=== PATIENT | female | born 1995 | race Caucasian/White ===

== ENCOUNTER → 2021-10-24 | Outpatient (CLI) | payer BC ==
[~2021-10-24] MED LIST: OXYC-325 PO
== END ==
LOC: LAB 11:17
PROVIDERS: ATTEND Surgery
DX: Z01.812 Encounter for preprocedural laboratory examination (principal); Z20.822 Contact with and (suspected) exposure to COVID-19
CPT/HCPCS: U0003; U0005

== ENCOUNTER 2021-10-28 07:21 | Day surgery (SDC) | payer BC ==
[~2021-10-28] VITALS: Ht 167.6 cm; Wt 61.5 kg
[~2021-10-28 07:21] MED LIST changes: +HYDROmorphone 2 MG/ML VIAL IVP PRN; +IV RINGERS,LACTATED 1000ML 1,000 ML IV SCH; +MORPHINE SULFATE 2 MG/ML INJ. IVP PRN; -OXYC-325 PO; +PROCHLORPERAZINE 10 MG/2 ML VIAL. IVP PRN; +ceFAZolin SODIUM IV Push 1 GM VIAL. IVP PRN; +fentaNYL PF VIAL 100 MCG/2 ML VIAL IVP PRN
[2021-10-28] MEDS ORDERED: BUPIVACAINE-EPI 0.5% 30 ML VIAL KIT. ONE (08:17)
[2021-10-28] MEDS ORDERED: DEXMEDETOMIDINE 200 MCG/2 ML VIAL. IV ONE (08:30)
[2021-10-28] MEDS ORDERED: ONDANSETRON PF 4 MG/2 ML VIAL. ONE (08:41)
[2021-10-28] MEDS ORDERED: LIDOCAINE 1% PF 5 ML VIAL. ONE (08:41)
[2021-10-28] MEDS ORDERED: PROPOFOL 10 MG/ML (20ML) VIAL. IV ONE (08:41)
[2021-10-28] MEDS ORDERED: KETOROLAC 30 MG/ML VIAL. ONE (08:41)
[2021-10-28] MEDS ORDERED: fentaNYL PF VIAL 100 MCG/2 ML VIAL ONE ×2 (08:42→10:45)
[2021-10-28] MEDS ORDERED: DEXAMETHASONE SOD PHOS 4 MG/ML VIAL ONE (08:42)
--- NOTE | 2021-10-28 10:33 | PDOC4 ---
Operative Note Operative Note Operative Note: Preoperative Diagnosis: Right inguinal hernia Postoperative Diagnosis: Same Procedure: Right inguinal hernia repair with mesh Surgeon: Ryan Nutter Up: Rocio MUNOZ Anesthesia: General EBL: 10 mL Specimen: None Drains: None Complications: None Indication: The patient is a 26-year-old female who is referred with a right inguinal hernia. She was offered surgical repair. The risks of surgery were discussed which include bleeding, infection, recurrence, pain, anesthetic risk, potential need for additional surgery procedure. She understands and would like to proceed. Description: The patient was taken to the operating room and placed supine on the operating table. General anesthesia was performed. The right groin was shaved prepped with ChloraPrep and draped in a standard surgical manner. An incision was made in the skin lines with a scalpel. Cautery dissection was carried down to the external beak aponeurosis. The aponeurosis was opened down to the external ring. The rudimentary cord structures were encircled with a Geeta drain. There was an indirect hernia sac present. The hernia sac was ligated near its base. The rudimentary cord structures were doubly ligated and excised. The hernia sac was fully reduced and the defect filled with a medium sized Phasix mesh plug. The plug was sutured into position with 2-0 Vicryl. The inguinal floor was reinforced with a Prolene mesh patch. The mesh was also sutured into position with 2-0 Vicryl. The external oblique was closed over the mesh with 2-0 Vicryl. Subcutaneous tissue was approximated with 3-0 Vicryl. The skin was closed with 4-0 Monocryl and infiltrated with half percent Marcaine with epinephrine. Steri-Strips and a sterile dressing were applied. The patient tolerated the procedure well and was sent to the recovery room in stable condition. At the end the case all counts were correct. TESSA PEREZ MD Oct 28, 2021 10:33
[2021-10-28] MEDS ORDERED: MORPHINE SULFATE 2 MG/ML INJ. ONE (10:45)
[2021-10-28] MEDS: fentaNYL PF VIAL 100 MCG/2 ML VIAL IVP PRN ×2 (10:49→10:58)
[2021-10-28] MEDS ORDERED: OXYC-325 PO (11:03)
--- NOTE | 2021-10-28 11:05 | DISCH ---
DISCHARGE INSTRUCTIONS Condition on Discharge Condition on Discharge: Stable Activity After Discharge Activity Instructions for Disc: Other, see below (no lifting over 20 lbs X 4 weeks) Driving Instructions after Dis: Other, see below (no driving while taking pain meds) Diet after Discharge Diet after Discharge: Regular Wound Incision Care Wound/Incision Care: Other, see below (keep dressing clean and dry X 72 hours, may then remove and shower) Follow-Up Follow up with: Dr Perez in 2 weeks in office; call for appt if needed [phone] TESSA PEREZ MD Oct 28, 2021 11:05
[2021-10-28 11:30] VITALS: BP 114/68
[2021-10-28] MEDS ORDERED: HYDROcodone/APAP 5/325MG 1 TAB TABLET PO ONE (11:30)
== END 2021-10-28 12:15 | disposition home or self-care (01) ==
LOC: SURG 07:21 → EDUNIT# 09:00 → SURG 12:15
PROVIDERS: ATTEND Surgery
DX: K40.90 Unilateral inguinal hernia, without obstruction or gangrene, not specified as recurrent (principal); Z79.899 Other long term (current) drug therapy; Z98.890 Other specified postprocedural states
CPT/HCPCS: 49505; 81025; 82962; A4213; A4364; A4930; A6402; C1781; J0690; J0780; J1100; J1885; J2270; J2405; J2704; J3010; J3490; A4452